=== PATIENT | female | born 1955 | race Caucasian/White ===

== ENCOUNTER → 2024-03-27 10:45 | Outpatient (REF) | payer MEDICARE, OTHER, SELFPAY | LOC: RAD 10:45 | PROVIDERS: ATTENDING PHYSICIAN Specialist; FAMILY PHYSICIAN Family Medicine | DX: M19.012 Primary osteoarthritis, left shoulder (principal) | CPT/HCPCS: 73200 ==

== ENCOUNTER → 2024-07-24 09:59 | Outpatient (REF) | payer MEDICARE, OTHER, SELFPAY | LOC: RAD 09:59 | PROVIDERS: ATTENDING PHYSICIAN Specialist; FAMILY PHYSICIAN Family Medicine | DX: M19.011 Primary osteoarthritis, right shoulder (principal); M19.012 Primary osteoarthritis, left shoulder | CPT/HCPCS: 73200 ==

== ENCOUNTER 2025-03-01 06:13 | Day surgery (SDC) | payer MEDICARE, OTHER, SELFPAY ==
[2025-02-18 11:22] LABS: Hematocrit 35.5 % (37.0-47.0); Hemoglobin 11.7 g/dL (12.0-16.0); Mean Corp Hgb Conc. 33.0 g/dL (33.0-37.0); Mean Corpuscular Volume 97.3 fL (81.0-99.0); Platelet Count 203 10^3/uL (130-400); Red Cell Dist. Width 12.8 % (11.5-14.5)
--- NOTE | 2025-02-18 11:23 | HPS.HSE ---
Family Physician
-
Family Physician: Paola Winn
Chief Complaint
-
Advanced primary osteoarthritis of the right shoulder. Same-day surgery.
History of Present Illness
The patient is a 69-year-old female presenting today for advanced primary osteoarthritis of the right shoulder. The patient reports significant right shoulder pain and instability secondary to this diagnosis. She notes that her current
right shoulder symptoms are greatly interfering with her activities of daily living and are overall impacting her quality of life. She has tried and failed multiple conservative treatment measures in the past for her right shoulder symptoms. These
conservative treatment measures include activity modification, self-directed therapeutic exercises, corticosteroid injections, medical management with Tylenol and NSAIDs, and the application of ice and/or heat. Recent x-ray findings of the right
shoulder demonstrated advanced [id number] osteoarthritis. She was determined to be in need of a right reverse total shoulder arthroplasty. She denies any current complaints today such as chest pain, shortness of breath, palpitations, nausea,
vomiting, diarrhea, lightheadedness, dizziness, cough, sore throat, or fever.
Medical History
Past Medical History
Past Medical History: Reports Other
Additional Past Medical History:
1. Osteoarthritis status post right total knee arthroplasty, 10/2018, by Dr. Juan R Alfaro.
2. Hypertension with white coat syndrome.
3. Coronary artery disease/NSTEMI, 11/2021, status post PCI with drug-eluting stent to LAD.
4. PACs and PVCs, asymptomatic.
5. Left ventricular hypertrophy.
6. Moderate mitral regurgitation.
7. Mildly dilated ascending aorta, 4.1 cm on chest CTA 2018.
8. Mild obstructive sleep apnea, no current device.
9. GERD.
10. History of GI ulcers, on previous PPI therapy.
11. Nephrolithiasis.
12. Chronic constipation.
13. Parkinson's disease, recently prescribed Carbidopa-Levodopa.
14. Pseudohypoparathyroidism.
15. Iron deficiency anemia.
16. Anxiety.
17. Insomnia.
18. Osteopenia.
Past Surgical History: Reports Other
Additional Past Surgical History:
1. Right total knee arthroplasty, 10/2018, by Dr. Juan R Alfaro.
2. Right shoulder arthroscopy.
3. PCI with drug-eluting stent to LAD.
4. section x3.
5. Tubal ligation.
6. Bilateral cataract extraction.
7. Colonoscopy.
8. EGD.
Social History
Tobacco: Non-smoker
Alcohol: None
Personal:
Living: Other (The patient lives in a ranch style home with her and daughter. She reports that they, as well as her daughter from [place], will be helping her post-operatively. )
Family History
Family History: Not pertinent
Allergies / Home Medications
Allergy/Medication List:
HOME MEDICATIONS:
1. Alprazolam 0.25 mg p.o. twice a day as needed.
2. Aspirin 81 mg p.o. daily.
3. Atorvastatin 40 mg p.o. every evening.
4. Calcitriol 0.5 mcg p.o. daily.
5. Calcium carbonate 300 mg p.o. daily.
6. CoQ10 100 mg p.o. daily.
7. Carbidopa-Levodopa 1/2 tablet p.o. three times a day.
8. Losartan 25 mg p.o. at bedtime.
9. Magnesium oxide 250 mg p.o. daily.
10. Metoprolol succinate 25 mg p.o. twice a day.
11. Pantoprazole 40 mg p.o. daily.
ALLERGIES: Aspirin (remote) - the patient has been desensitized. Seasonal.
Review of Systems
-
A 12 point ROS was completed and negative except as noted: Yes
Physical Exam
Vital Signs
Blood pressure 158/90 secondary to anxiety. Heart rate 71. Respirations 18. Pulse ox 98%.
Height 5 feet, 4 inches. Weight 67.8 kg. BMI 25.7.
Physical Exam
General: Well Developed, Well Nourished, No Apparent Distress and Other (Slow speech noted due to Parkinson's diagnosis. )
HEENT: NormoCephalic, Moist mucous membranes, Atraumatic and PERRLA
Respiratory: Clear
Cardiac: Regular Rhythm
GI: Soft, Non Tender and Non Distended
Musculoskeletal: Other (Left shoulder: elevation to 90, external rotation to 30, internal rotation to hip pocket. Strength is intact with pain on testing. Right shoulder: elevation to 80, external rotation to 50, internal rotation to hip pocket.
Strength is intact with pain on testing. Notable right hand tremor. )
Skin: Warm and Dry
Neuro: AO x 3
Laboratory Results
-
02/18/25 10:11
DIAGNOSTIC STUDIES as of 02/18/2025: Sodium 140. Potassium 4.0. BUN 25. Creatinine 0.8. Glucose 94. Hemoglobin A1c 5.6. Calcium 9.8. AST 27. ALT <10. Albumin 4.5. MRSA screen negative.
EKG provided by Cardiology.
Impression/Plan
-
CLEARANCES:
1. Primary medical: Dr. Paola Winn, cleared.
Primary medical phone number: [phone].
2. Cardiology: Dr. Mike Santos, cleared.
3. Dental pending.
IMPRESSION/PLAN:
1. Advanced primary osteoarthritis of the right shoulder in need of a right reverse total shoulder arthroplasty with Dr. Cristi Gunn on 02/19/2025. The benefits and risks of the procedure have been explained to the patient. The patient understands
these risks and wishes to proceed.
2. DVT prophylaxis: Aspirin, as the patient has been desensitized and bilateral venous compression devices.
3. Pain management: The patient has stable comorbidities as referenced by her primary care physician and passenger representative and is medically optimized to proceed as a Same-Day Surgery candidate on 03/01/2025. In preparation for her procedure, she has
already been prescribed Tramadol 50 mg, 1-2 tablets p.o. every 6 hours as needed for moderate to severe post-operative pain. She will also utilize Acetaminophen 1000 mg p.o. every 6 hours and Dexamethasone 4 mg p.o. twice a day for 3 days
post-surgery. NSAIDs will be avoided due to her history of previous GI ulcers.
4. Post-operative bowel regimen: The patient will purchase Colace and Senokot for post-operative use. These will be taken twice a day post-surgery, regardless of oral intake, until she is having regular bowel movements. Adequate hydration, early
mobility as tolerated, and the minimization of opioids were also discussed eladia-operatively. She will add Miralax to this regimen should no bowel movement occur with 48-72 hours post-surgery.
Patient's home phone number: [phone].
Patient's cell phone number: [phone].
Patient's contact (Kyle Hutchinsonheenatim - Spouse): [phone].
[2025-02-18 12:00] LABS: Glycohemoglobin (HgbA1c) 5.6 % (4.0-5.9)
[2025-02-18 12:08] LABS: ALT (SGPT) < 10 U/L (0-35); AST (SGOT) 27 U/L (14-36); Albumin 4.5 g/dl (3.5-5.0); Alkaline Phosphatase 65 U/L (38-126); Blood Urea Nitrogen 25 mg/dl (7-17); Calcium 9.8 mg/dl (8.4-10.2); Carbon Dioxide 32 mmol/L (22-30); Chloride 100 mmol/L (98-107); Glucose 94 mg/dl (70-99); Potassium 4.0 mmol/L (3.5-5.1); Sodium 140 mmol/L (135-145); Total Protein 7.3 g/dl (6.3-8.2); eGFR > 60.00
[2025-02-18 13:55] VITALS: BMI 25.7
[2025-02-18 18:18] VITALS: BMI 25.7
--- NOTE | 2025-02-23 09:40 | CM ---
CM reviewed medical records. CM left message.
[2025-03-01] VITALS (10 sets, daily range): BP systolic 135–165; BP diastolic 76–88; BMI 25.7
[2025-03-01] MEDS: CELEBREX 200 MG PO (07:21)
[2025-03-01] MEDS: NORMOSOL-R/PLASMALYTE-A 1000 IV (07:22)
[2025-03-01] MEDS: TYLENOL 1000 MG PO (07:22)
[2025-03-01] MEDS: ANCEF 5 IV (12:43)
== END 2025-03-01 13:05 | disposition home or self-care (01) ==
LOC: SDS 06:13
PROVIDERS: ATTENDING PHYSICIAN Specialist; FAMILY PHYSICIAN Family Medicine; OTHER PHYSICIAN Physician Assistant; REFERRING PHYSICIAN Internal Medicine Interventional Cardiology
DX: M19.011 Primary osteoarthritis, right shoulder (principal); Z96.611 Presence of right artificial shoulder joint
CPT/HCPCS: 23472; 36415; 73020; 80053; 83036; 85027; 86850; 86900; 86901; 87070; C1713; C1776